=== PATIENT | female | born 1955 | race Caucasian/White ===

== ENCOUNTER 2019-07-29 05:36 | Inpatient (IN) | payer MEDICAID ==
[~2019-07-29] VITALS: Ht 157.5 cm; Wt 53.5 kg
[2019-07-29] MEDS ORDERED: SKIN ADHESIVE 0.7 GM EA TOP ONE (06:20)
[2019-07-29] MEDS ORDERED: BUPIVACAINE HCL 0.5% (5MG/ML) 50ML ONE (06:21)
[2019-07-29] MEDS ORDERED: BUPIVACAINE HCL/PF 0.5% (5MG/ML) 10ML ONE (06:21)
[2019-07-29] MEDS ORDERED: METRONIDAZOLE 500 MG PREMIX 100 ML IV ONE (06:22)
[2019-07-29] MEDS ORDERED: LEVOFLOXACIN 500MG PREMIX 100 ML IV ONE (06:22)
[2019-07-29] MEDS ORDERED: LACTATED RINGERS 1,000 ML IV SCH (06:30)
[2019-07-29] MEDS ORDERED: ACETAMINOPHEN 650MG SUPP PR PRN (06:30)
[2019-07-29] MEDS ORDERED: ONDANSETRON HCL 4MG/2ML INJ IV PRN (06:30)
[2019-07-29] MEDS ORDERED: MORPHINE SULFATE 4 MG/ML CPJ (NOT FOR IM USE) IV PRN (06:30)
[2019-07-29] MEDS ORDERED: ROCURONIUM BROMIDE 10MG/ML VIAL 5ML IV ONE ×2 (07:26→09:31)
[2019-07-29] MEDS ORDERED: PROPOFOL 200MG/20ML VIAL IV ONE (07:26)
[2019-07-29] MEDS ORDERED: FENTANYL CITRATE/PF 50MCG/ML 2ML VIAL ONE (07:26)
[2019-07-29] MEDS ORDERED: MIDAZOLAM HCL 2 MG/2 ML VIAL ONE (07:27)
[2019-07-29] MEDS ORDERED: SUCCINYLCHOLINE CHLORIDE 200MG/10ML IV ONE (08:29)
[2019-07-29] MEDS ORDERED: PHENYLEPHRINE HCL 10 MG/ML 1ML (IV VIAL) IV ONE (08:30)
[2019-07-29] MEDS ORDERED: METOCLOPRAMIDE HCL 10MG/2ML VIAL ONE (08:30)
[2019-07-29] MEDS ORDERED: EPHEDRINE SULFATE 50MG/ML VIAL ONE (08:30)
[2019-07-29] MEDS ORDERED: HYDROMORPHONE HCL/PF 2MG/ML (OR) ONE (08:54)
[2019-07-29] MEDS ORDERED: INDOCYANINE GREEN 25 MG VIAL IV ONE (09:41)
[2019-07-29] MEDS ORDERED: NEOSTIGMINE METHYLSULFATE 1MG/ML 10 ML VIAL ONE (10:18)
[2019-07-29] MEDS ORDERED: GLYCOPYRROLATE 0.2 MG/ML 2ML VIAL ONE (10:18)
[2019-07-29] MEDS ORDERED: KETOROLAC 30MG/ML VIAL ONE (10:20)
[2019-07-29] MEDS ORDERED: DEXAMETHASONE 4MG/ML 1ML VIAL ONE (10:21)
[2019-07-29] MEDS ORDERED: MEPERIDINE HCL/PF 25MG/ML CPJ IV PRN (11:00)
[2019-07-29] MEDS ORDERED: HYDROMORPHONE HCL/PF 2MG/ML CPJ IV PRN (11:00)
[2019-07-29] MEDS ORDERED: HYDROMORPHONE PCA 10MG/50ML IV PRN (11:30)
[2019-07-29] MEDS ORDERED: DIPHENHYDRAMINE INJ IV PRN (11:30)
[2019-07-29] MEDS ORDERED: NALOXONE INJ IV PRN (11:30)
[2019-07-29] MEDS ORDERED: ACETAMINOPHEN 325MG TABLET PO PRN (11:30)
[2019-07-29] MEDS ORDERED: ONDANSETRON INJ IV PRN (11:30)
[2019-07-29 13:00] VITALS: BP 124/45
[2019-07-29] MEDS: DEXT 5%/0.45% NACL KCL 20MEQ/L 1,000 ML IV SCH ×2 (16:20→22:57)
[2019-07-29] MEDS: METRONIDAZOLE 500 MG PREMIX 100 ML IV SCH (16:20)
[2019-07-29 20:00] VITALS: BP 115/51
[2019-07-29] MEDS: FAMOTIDINE 20MG/2ML VIAL IV SCH (21:20)
[2019-07-30] VITALS: BP 103/51
[2019-07-30] MEDS: METRONIDAZOLE 500 MG PREMIX 100 ML IV SCH ×2 (02:47→08:54)
[2019-07-30 04:00] VITALS: BP 99/43
[2019-07-30] MEDS ORDERED: LEVOFLOXACIN 500MG PREMIX 100 ML IV NR (06:30)
[2019-07-30 07:18] LABS: CHLORIDE 108 mEq/L (98-107)
[2019-07-30 07:22] LABS: HEMATOCRIT. 29.6 % (36.0-48.0); MEAN CORPUSCULAR HEMOGLOBIN 29.7 pg (28.0-32.0); MEAN CORPUSCULAR VOLUME 88.1 fL (81.0-99.0); MEAN PLATELET VOLUME 9.8 fl (7.4-10.4); PLATELET 197 x1000/uL (130-400); RED BLOOD CELL COUNT 3.36 mill/uL (4.2-5.4); RED CELL DISTRIBUTION WIDTH 13.6 % (11.6-14.6)
[2019-07-30 08:00] VITALS: BP 99/45
[2019-07-30] MEDS: FAMOTIDINE 20MG/2ML VIAL IV SCH ×2 (09:01→21:06)
[2019-07-30] MEDS: DEXT 5%/0.45% NACL KCL 20MEQ/L 1,000 ML IV SCH ×2 (11:00→21:06)
[2019-07-30 11:57] LABS: PLATELET ESTIMATE NORMAL
[2019-07-30 12:00] VITALS: BP 101/40
[2019-07-30 20:00] VITALS: BP 109/47
[2019-07-31] VITALS: BP 103/47
[2019-07-31 04:00] VITALS: BP 123/62
[2019-07-31 08:00] VITALS: BP 132/56
[2019-07-31] MEDS: FAMOTIDINE 20MG/2ML VIAL IV SCH ×2 (08:56→20:50)
[2019-07-31] MEDS: MORPHINE SULFATE 2 MG/ML CPJ (NOT FOR IM USE) IV PRN (16:37)
[2019-07-31 17:00] VITALS: BP 150/75
[2019-07-31 20:00] VITALS: BP 122/65
[2019-08-01] VITALS: BP 120/67
[2019-08-01] MEDS: DEXT 5%/0.45% NACL KCL 20MEQ/L 1,000 ML IV SCH ×3 (02:37→23:32)
[2019-08-01 04:00] VITALS: BP 123/69
[2019-08-01] MEDS: MORPHINE SULFATE 2 MG/ML CPJ (NOT FOR IM USE) IV PRN ×2 (04:23→21:21)
[2019-08-01 08:00] VITALS: BP 124/82
[2019-08-01] MEDS: FAMOTIDINE 20MG/2ML VIAL IV SCH ×2 (08:28→21:05)
[2019-08-01] MEDS: LEVOFLOXACIN 500MG PREMIX 100 ML IV SCH (08:28)
[2019-08-01 10:26] LABS: BASOPHILS % 0.3 % (0.0-2.0); EOSINOPHILS % 0.7 % (0.0-5.0); HEMATOCRIT. 32.5 % (36.0-48.0); HEMOGLOBIN. 10.9 g/dL (12.0-16.0); LYMPHOCYTES % 11.6 % (20.0-50.0); MEAN CORPUSCULAR HEMOGLOBIN 29.6 pg (28.0-32.0); MEAN CORPUSCULAR VOLUME 88.5 fL (81.0-99.0); MEAN PLATELET VOLUME 9.9 fl (7.4-10.4); MONOCYTES % 7.4 % (2.0-8.0); PLATELET 210 x1000/uL (130-400); RED BLOOD CELL COUNT 3.68 mill/uL (4.2-5.4); RED CELL DISTRIBUTION WIDTH 13.9 % (11.6-14.6)
[2019-08-01 16:00] VITALS: BP 124/69
[2019-08-01 20:00] VITALS: BP 136/63
[2019-08-02] VITALS: BP 124/55
[2019-08-02 04:00] VITALS: BP 119/61
[2019-08-02 08:00] VITALS: BP 123/64
[2019-08-02] MEDS: FAMOTIDINE 20MG/2ML VIAL IV SCH (08:49)
[2019-08-02] MEDS: LEVOFLOXACIN 500MG PREMIX 100 ML IV SCH (08:49)
[2019-08-02] MEDS: DEXT 5%/0.45% NACL KCL 20MEQ/L 1,000 ML IV SCH (08:57)
[2019-08-02 12:00] VITALS: BP 124/69
[2019-08-02 16:00] VITALS: BP 145/76
[2019-08-02 18:05] VITALS: BP 145/76
== END 2019-08-02 18:52 | disposition home health service (06) | DRG 231 ==
LOC: OR 05:36 → 6EST 05:37
PROVIDERS: ADMIT Surgery; ATTEND Surgery
PROC: 8E0W4CZ Robotic Assisted Procedure of Trunk Region, Percutaneous Endoscopic Approach (ICD-10-PCS; principal; 2019-07-29)
PROC: 0DTP4ZZ Resection of Rectum, Percutaneous Endoscopic Approach (ICD-10-PCS; 2019-07-29)
DX: C20 Malignant neoplasm of rectum (principal); K56.7 Ileus, unspecified; R32 Unspecified urinary incontinence; R33.9 Retention of urine, unspecified
CPT/HCPCS: 36415; 80048; 80051; 85025; 86850; 86900; 88307; 88309; 88329; J0330; J1100; J1170; J1885; J1956; J2250; J2270; J2370; J2405; J2704; J2710; J2765; J3010; J3490; Q9957